=== PATIENT | female | born 1960 | race Caucasian/White ===

== ENCOUNTER 2018-07-13 14:47 | Emergency (ER) | payer BC ==
--- NOTE | 2018-07-13 15:40 | Emergency Department Record ---
History of Present Illness - General Chief Complaint: Ankle/Foot Injury Stated Complaint: BROKEN TOE Source: Patient Mode of Arrival: Ambulatory Limitations: No limitations - History of Present Illness Initial Comments: 58 yo presents with an injured left 5th toe. She stubbed her toe this morning around 8am. The toe was pointing in an abnormal direction. She straighten it out. No other injuries or pale. MD Complaint: Foot injury, Other (5th toe) Injury: Foot: Left, Toes: Left Type of Injury: Blunt Place: Home Severity: Mild Improves With: Nothing Worsens With: Movement, Palpation, Weight bearing Context: Direct blow Other Symptoms: Other Associated Symptoms: Snap/pop sensation Treatments Prior to Arrival: Other (Reduced a deformed toe at home) - Related Data Home Medications Medication Instructions Recorded Confirmed Last Taken Atenolol/Chlorthalidone 1 tab PO DAILY 07/13/18 07/13/18 07/13/18 [Atenolol-Chlorthalidone 100-25] Levothyroxine Sodium [Synthroid] 150 mcg PO DAILY 07/13/18 07/13/18 07/13/18 Allergies Allergy/AdvReac Type Severity Reaction Status Date / Time diphenhydramine Allergy HIVES Verified 07/13/18 15:32 [From Benadryl] Penicillins Allergy ANAPHYLAXIS Verified 07/13/18 15:32 azithromycin [From Zithromax] AdvReac VOMITING Verified 07/13/18 15:32 Review of Systems Constitutional: Denies: Chills, Fever, Weakness Eyes: Denies: Vision change ENT: Denies: Congestion, Throat pain Respiratory: Denies: Cough Cardiovascular: Denies: Edema Endocrine: Denies: Fatigue Gastrointestinal: Denies: Abdominal pain, Diarrhea, Nausea, Vomiting Musculoskeletal: Reports: As per HPI, Arthralgia Skin: Reports: Bruising Neurological: Denies: Numbness, Tingling, Tremors, Weakness Psychiatric: Denies: Anxiety Hematological/Lymphatic: Denies: Easy bleeding, Easy bruising Physical Exam - General General Appearance: Alert, Oriented x3, Cooperative, No acute distress Limitations: No limitations - Head Head exam: Normal inspection - Eye Eye exam: Normal appearance, PERRL. negative: Conjunctival injection - ENT ENT exam: Normal exam Ear exam: Normal external inspection Nasal Exam: Normal inspection - Neck Neck exam: Normal inspection - Cardiovascular Peripheral Pulses: 2+: Dorsalis Pedis (L) - Extremities Image of Feet: 1 - mild swellling and bruising, anatomically appears in place, nail is intact - Neurological Neurological exam: Alert, Oriented X3. negative: Motor sensory deficit - Psychiatric Psychiatric exam: Normal affect, Normal mood - Skin Skin exam: Dry, Intact, Normal color, Warm Course - Reevaluation(s) Reevaluation #1: The XR was negative for acute toe fracture or dislocation, question chronic or subacute base of 5th fx She was given a DonJoy. She has follow up this week with her PCP. 07/13/18 19:01 Disposition Disposition: Discharge Clinical Impression: Dislocation of toe of left foot Qualifiers: Encounter type: initial encounter Qualified Code(s): S93.105A - Unspecified dislocation of left toe(s), initial encounter Fracture of 5th metatarsal Qualifiers: Encounter type: initial encounter Fracture type: closed Fracture alignment: nondisplaced Disposition: Home, Self-Care Condition: (1) Good Instructions: Foot Fracture in Adults (ED) Additional Instructions: Follow up Sunday with your family doctor Return to ED if your symptoms worsen or if you have any new concerns. Review the final Emergency Record and test results with your doctor on follow up Use the boot for support and comfort of the likely 5th toe dislocation and the possible recent or healing injury to the 5th metatarsal bone (mid foot) Forms: Patient Portal Access Time of Disposition: 16:51 Quality - Quality Measures Quality Measures: N/A - Blood Pressure Screening Does Patient Have Any of the Following: Active Dx of HTN Blood Pressure Classification: Hypertensive Reading Systolic Measurement: 153 Diastolic Measurement: 58 Screening for High Blood Pressure: Patient Exclusion, Hx of HTN [[id number]]
--- NOTE | 2018-07-16 12:06 | RADIOLOGY REPORT ---
EXAM: LEFT FOOT HISTORY: FALL, LATERAL FIFTH TOE PAIN. TECHNIQUE: Three views of the left foot were obtained. Comparison: None. FINDINGS: There is deformity at the base of the fifth metatarsal with associated sclerosis and cortical prominence, suggesting most likely a subacute or chronic fracture deformity. Mild associated fragmentation. Otherwise, no definite fracture is appreciated. No evidence of dislocation. Multifocal degenerative changes involving the ankle and foot, with prominent dorsal mid foot osteophytes. Prominent plantar calcaneal enthesophyte. IMPRESSION: 1. DEFORMITY AT THE BASE OF THE FIFTH METATARSAL, APPEARANCE MOST SUGGESTIVE OF A SUBACUTE OR CHRONIC FRACTURE DEFORMITY. 2. MULTIFOCAL DEGENERATIVE CHANGES OF THE ANKLE AND FOOT. JOB NUMBER: [id number] MTDD
== END 2018-07-13 17:24 | disposition home or self-care (01) ==
LOC: ER 14:47 → EDSEX 14:47 → ER 17:24
DX: G89.11 Acute pain due to trauma (principal); M79.675 Pain in left toe(s); M20.5X2 Other deformities of toe(s) (acquired), left foot; I10 Essential (primary) hypertension; W22.8XXA Striking against or struck by other objects, initial encounter; Y92.009 Unspecified place in unspecified non-institutional (private) residence as the place of occurrence of the external cause
CPT/HCPCS: 99283